=== PATIENT | male | born 1960 | race Caucasian/White ===

== ENCOUNTER 2020-08-27 15:08 | Inpatient (IN) | payer MEDICAID ==
[~2020-08-27] VITALS: Ht 172.7 cm; Wt 79.9 kg
[2020-08-27] MEDS ORDERED: CefTRIAXone 2gm/D5W 50ml 50 ML IV ONE (15:15)
[2020-08-27] MEDS ORDERED: normal saline 1000ML IV soln IV ONE ×2 (15:15→16:20)
[2020-08-27 15:54] LABS: BASOPHILS # (AUTO) 0.1 X10'3 (0-0.2); BASOPHILS % (AUTO) 0.5 % (0-1); EOSINOPHILS % (AUTO) 0.2 % (0-6); HEMATOCRIT 37.7 % (42.0-52.0); HEMOGLOBIN 12.9 g/dl (14.0-17.9); LYMPHOCYTES # (AUTO) 1.6 X10'3 (1.1-4.8); LYMPHOCYTES % (AUTO) 10.6 % (21-51); MEAN CORPUSCULAR HEMOGLOBIN 34.8 PG (27.0-31.0); MEAN CORPUSCULAR HGB CONC 34.2 g/dL (33.0-36.5); MEAN CORPUSCULAR VOLUME 101.5 FL (78-98); MEAN PLATELET VOLUME 8.6 FL (7.4-10.4); MONOCYTES # (AUTO) 0.8 X10'3 (0-0.9); MONOCYTES % (AUTO) 5.5 % (2-12); NEUTROPHILS # (AUTO) 12.8 X10'3 (1.8-7.7); NEUTROPHILS % (AUTO) 83.2 % (42-75); PLATELET COUNT 133 X10'3 (140-440); RED BLOOD COUNT 3.71 X10'6 (4.70-6.10); RED CELL DISTRIBUTION WIDTH 14.4 % (11.5-14.5); WHITE BLOOD COUNT 15.4 X10'3 (4.5-11.0)
[2020-08-27 16:10] LABS: ALANINE AMINOTRANSFERASE 69 U/L (12-78); ALBUMIN 2.4 G/DL (3.4-5.0); ALKALINE PHOSPHATASE 113 IU/L (46-116); ANION GAP 13 (8-16); ASPARTATE AMINO TRANSFERASE 83 U/L (10-37); BILIRUBIN,TOTAL 4.3 MG/DL (0.1-1.0); BLOOD UREA NITROGEN 14 MG/DL (7-18); BUN/CREATININE RATIO 11.8 (5.4-32.0); CALCIUM 7.5 MG/DL (8.5-10.1); CHLORIDE 103 MMOL/L (99-107); CREATININE 1.19 MG/DL (0.60-1.10); GLUCOSE 111 MG/DL (70-104); POTASSIUM 3.5 MMOL/L (3.5-5.1); SODIUM 135 MMOL/L (135-145); TOTAL CARBON DIOXIDE 18.8 MMOL/L (24-32); eGFR 62 ML/MIN
[2020-08-27 16:13] LABS: ALBUMIN/GLOBULIN RATIO 0.5 (1.1-1.5); TOTAL PROTEIN 6.8 G/DL (6.4-8.2); TROPONIN I < 0.04 NG/ML (0.0-0.05)
[2020-08-27 16:16] LABS: ETHANOL < 0.010 GM/DL (0.0-0.010)
[2020-08-27] MEDS ORDERED: vancomycin/NS 1 GM ADD-VANTAGE 250 ML IV ONE (16:20)
[2020-08-27] MEDS ORDERED: HYDROcodone/acetaminophen 10/325mg tab PO PRN (17:05)
[2020-08-27] MEDS ORDERED: magnesium 4gm in 100ml NS 100 ML IV PRN (17:05)
[2020-08-27] MEDS ORDERED: potassium Cl 20 mEq SR tablet PO PRN ×2 (17:05)
[2020-08-27] MEDS ORDERED: acetaminophen 650mg rectal suppository RC PRN (17:05)
[2020-08-27] MEDS ORDERED: potassium CL 10mEq/100ml bag 100 ML IV PRN ×2 (17:05)
[2020-08-27] MEDS ORDERED: mag hydrox/Alum hydrox/simeth 30ml oral suspension PO PRN (17:05)
[2020-08-27] MEDS ORDERED: magnesium Cl slow-release 64mg tablet PO PRN (17:05)
[2020-08-27] MEDS ORDERED: normal saline 1000ml 1,000 ML IV SCH (17:05)
[2020-08-27] MEDS ORDERED: magnesium 2GM in 50ml NS 50 ML IV PRN (17:05)
[2020-08-27] MEDS ORDERED: bisacodyl 10mg suppository rectal RC PRN (17:05)
[2020-08-27] MEDS ORDERED: morphine 2 MG/ML inj. syringe IV PRN ×2 (17:05)
[2020-08-27] MEDS ORDERED: acetaminophen 325mg tablet PO PRN ×2 (17:05)
[2020-08-27] MEDS ORDERED: HYDROcodone/acetaminophen 5mg/325mg tablet PO PRN (17:05)
[2020-08-27] MEDS ORDERED: magnesium hydroxide 30ml (MOM) UD suspension PO PRN (17:05)
[2020-08-27] MEDS ORDERED: ondansetron/PF 4mg/2ml inj IV PRN (17:05)
[2020-08-27 17:31] LABS: HEMOGLOBIN A1C 6.5 % (4.5-6.2)
[2020-08-27] MEDS ORDERED: LACT10SO PO (17:55)
[2020-08-27] MEDS ORDERED: FURO-149 PO (17:55)
[2020-08-27] MEDS ORDERED: SPIR100T5 PO (17:55)
[2020-08-27] MEDS ORDERED: RIFA550T PO (17:55)
[2020-08-27] MEDS ORDERED: NADO20TA5 PO (17:55)
[2020-08-27] MEDS ORDERED: CALC60OI4 TOP (17:55)
[2020-08-27] MEDS ORDERED: INSU100I31 SQ ×2 (17:55)
--- NOTE | 2020-08-27 18:28 | NUR ---
PT STATES "IM NOT STAYING", PT REFUSING TO VOID AND REFUSING F/C. PROVIDER ADVISED. DR HODGE IN TO SEE PT AND HE TOLD HIM HE WAS REFUSING F/C AND TO STAY.
[2020-08-27 19:00] VITALS: BP 135/66
--- NOTE | 2020-08-27 19:00 | NUR ---
pt arrived to PCU unit from ER, pt is alert and oriented and on RA, pt vanco is still infusing, will continue to monitor pt
[2020-08-27] MEDS ORDERED: heparin, porcine 5000 units/ml vial SQ SCH (20:00)
[2020-08-27] MEDS ORDERED: K and/or MAG REPLACEMENT MC SCH (20:00)
--- NOTE | 2020-08-27 21:06 | NUR ---
pt is refusing certain treatment and medications stating "I am going home I am not staying here I knew you guys were up to something". educated pt on importance of staying along with explaining his plan of care and why everything he has ordered is specialized just for his care and to help him get better. pt still refuses certain things, will continue to monitor pt
--- NOTE | 2020-08-27 21:55 | NUR ---
pt ripped out IV and put his clothes and shoes on stating he is leaving and no longer needs to be here. educated pt on why he is in the hospital and the current plan of care and advised that he should not leave. pt is still stating he wants to leave AMA
--- NOTE | 2020-08-27 22:16 | NUR ---
Page Sent promotional table spacer PAGER ID: [phone] MESSAGE: Cuauhtemoc Morocho 59M admitted with sepsis, Bilateral LE cellulitis, pt is leaving AMA thank you Deann VALENZUELA [id number]
[2020-08-28] MEDS ORDERED: piperacillin/tazo 3.375gm/50ml 50 ML IV SCH
[2020-08-28] MEDS ORDERED: vancomycin/NS 1 GM ADD-VANTAGE 250 ML IV SCH (05:00)
== END 2020-08-27 22:15 | disposition left against medical advice (07) | DRG 720 ==
LOC: EDBD 15:08 → ER 15:08 → ED HOLD 17:05 → PCU 3S 19:28
PROVIDERS: ADMIT Family Medicine; ATTEND Family Medicine
DX: A41.9 Sepsis, unspecified organism (principal); G92 Toxic encephalopathy; L03.90 Cellulitis, unspecified
CPT/HCPCS: 36415; 70450; 71045; 76937; 80053; 80320; 83036; 83605; 84145; 84484; 85025; 87040; 93005; 93970; 96365; 99285; G0378; J0696; J1644; J3370; J7030